=== PATIENT | male | born 1975 | race Caucasian/White ===

== ENCOUNTER 2021-02-17 12:13 | Emergency (ER) | payer BC, SELFPAY ==
--- NOTE | ~2021-02-17 | XR_ITS ---
EXAMINATION: LUMBAR SPINE AND CHEST X-RAY. CLINICAL INFORMATION: Fall. Low back pain. COMPARISON: None TECHNIQUE: Chest 2 views. Lumbar spine 3 views. FINDINGS: Lumbar spine: There is normal lumbar lordosis. The vertebral heights, alignment and disc heights are normal. No visible acute fracture, dislocation or lytic process seen. The SI joints are symmetrical. The paravertebral soft tissues are normal. CHEST: The lungs are well-expanded and clear. The heart size and pulmonary vascularity is normal. No gross bony abnormality seen. XR/XR chest 2V IMPRESSION: Unremarkable chest exam. Unremarkable lumbar spine exam.
--- NOTE | ~2021-02-17 | XR_ITS ---
EXAMINATION: LUMBAR SPINE AND CHEST X-RAY. CLINICAL INFORMATION: Fall. Low back pain. COMPARISON: None TECHNIQUE: Chest 2 views. Lumbar spine 3 views. FINDINGS: Lumbar spine: There is normal lumbar lordosis. The vertebral heights, alignment and disc heights are normal. No visible acute fracture, dislocation or lytic process seen. The SI joints are symmetrical. The paravertebral soft tissues are normal. CHEST: The lungs are well-expanded and clear. The heart size and pulmonary vascularity is normal. No gross bony abnormality seen. XR/XR lumbar spine 2-3V IMPRESSION: Unremarkable chest exam. Unremarkable lumbar spine exam.
[2021-02-17 12:47] VITALS: BP 149/100; PULSE 102; RESP 22; TEMP 36.9; O2SAT 98; BMI 27.5
--- NOTE | 2021-02-17 13:33 | ED.GENADULT ---
HPI - General Adult General Chief complaint: Back Pain/Injury Stated complaint: fall back pain Time Seen by Provider: 02/17/21 13:32 Source: patient Limitations: language barrier History of Present Illness HPI narrative: Patient presents to the ER complaining of right-sided lower back pain. And also chest wall pain. Patient states last night while playing basketball on its side he slipped on the pavement falling onto his back. Patient states the pain is worsened after sleeping at a friend's house last night. Pain increases with any range of motion or palpation of the front of the chest or mid back to lower back. Pain is 9/10. Patient denies nausea vomiting fever chills. Symptoms are moderate Related Data Previous Rx's Medication Instructions Recorded methocarbamol 750 mg PO TID PRN #20 tab 02/17/21 naproxen 500 mg PO BID PRN #20 tab 02/17/21 Allergies Allergy/AdvReac Type Severity Reaction Status Date / Time No Known Allergies Allergy Unverified 05/06/20 15:03 [No Known Allergies*] Review of Systems Review of Systems: Constitutional : No Weight loss, No Fever, No Chills, No Night Sweats, No Fatigue, No Malaise ENT/Mouth : No Hearing loss, No Ear Pain, No Nasal Congestion, No Sinus Pain, No Hoarseness, No sore throat, No Rhinorrhea, No Swallowing Difficulty Eyes: No Eye Pain, No Swelling, No Redness, No Foreign Body, No Discharge, No Vision Changes Cardiovascular : No Chest Pain, No SOB, No Dyspnea on Exertion, No Orthopnea, No Edema, No Palpitations Respiratory : No Cough, No Sputum, No Wheezing, No Smoke Exposure, No Dyspnea Gastrointestinal : No Nausea, No Vomiting, No Diarrhea, No Constipation, No abdominal Pain, No Hematochezia, No Melena Genitourinary : no irregular bleeding, No Dysuria, No Urinary Frequency, No Hematuria, No Urinary Incontinence, No Urgency, No Flank Pain, No Urinary Flow Changes, No Hesitancy Musculoskeletal : No joint pain, No Myalgias, No Joint SwellingSkin : No Skin Lesions, No rash Neuro : No Weakness, No Numbness, No Paresthesias, No Loss of Consciousness, No Dizziness, No Headache Psych : No Anxiety/Panic, No Depression, No SI/HI/AH/VH, No Social Issues, Heme/Lymph: No Bruising, No Bleeding,No Lymphadenopathy Endocrine : No Polyuria, No Polydipsia, No Temperature Intolerance Constitutional: Constitutional: Denies chills, Denies fever(s), Denies headache(s) and Denies weakness ENT: Denies headache(s) and Denies neck pain Cardiovascular: Cardiovascular: Reports chest pain ( chest wall pain), Denies lightheadedness and Denies dyspnea Respiratory: Respiratory: Denies cough and Denies dyspnea Gastrointestinal: Gastrointestinal: Denies nausea and Denies vomiting Musculoskeletal: Musculoskeletal: Denies muscle weakness, Denies neck pain and Denies numbness Comments: diffuse lower back pain Neurologic: Denies headache(s), Denies numbness and Denies weakness [facility] Past Medical History Attestation statement: The following information was validated with the patient. Medical History Cardiac anomaly No known health problems Social History Social History Advance Directives: Yes Advance Directives Information Provided: No Advance Directives on File: No Physical Exam Vital Signs: Vital Signs: Last Vital Signs Temp 98.5 F 02/17/21 12:47 Pulse 102 H 02/17/21 12:47 Resp 22 H 02/17/21 12:47 BP 149/100 H 02/17/21 12:47 Pulse Ox 98 02/17/21 12:47 Body Mass Index 27.5 vital signs have been reviewed as normal and appeared to be correct. Blood pressure normal. Heart rate normal. Respiration rate normal. Temperature normal. Oxygen saturation normal. Appearance: Alert. Oriented X3. patient very anxious complaining of pain Head: Normal external exam. Normocephalic. Atraumatic. Eyes: PERRLA. EOMI. Conjunctiva and sclera normal. Eyelids normal. ENT: Pharynx normal. Uvula midline. Moist mucous membranes. Neck: Soft full range of motion, no JVD CVS: Heart regular rate and rhythm no murmurs and rubs positive chest wall does tenderness diffuse 3rd 4th intercostals no crepitus Respiratory: Breath sounds are clear to auscultation bilaterally. No accessory muscle use noted. Abdomen: Soft nontender no rebound or guarding positive bowel sounds Back: paraspinal muscle tenderness right greater than left slight midline tenderness slight abrasion noted right side of the back Skin: Skin warm and dry. Extremities: No lower extremity edema. patient is moving upper and lower extremities Neuro: Oriented X 3. No motor deficit. No sensory deficit. Reflexes normal. Course Course Course Narrative: lumbar contusion Lumbar strain Lumbar fracture Chest wall contusion 60 mg Toradol IM LS spine and chest x-ray pending masspat reviewed no prescriptions found system consistent with musculoskeletal pain and positive relief with Toradol with plan to discharge patient home x-rays of foot reviewed with patient Medical Decision Making Imaging Data lumbar: Radiologist's impression: [address] [id number] ReportSigned Patient: Sylvain Vera MMR#: [id number]: [id number]:[id number]/Sex: 45 / MADM Date: 02/17/21Loc: HO.EDAttending Dr: Ordering Physician: Fredo Arellano Date of Service: 02/17/21 Procedure(s): XR chest 2V Accession Number(s): [id number] cc: Fredo Arellano ~ EXAMINATION: LUMBAR SPINE AND CHEST X-RAY. CLINICAL INFORMATION: Fall. Low back pain. COMPARISON: None TECHNIQUE: Chest 2 views. Lumbar spine 3 views. FINDINGS: Lumbar spine: There is normal lumbar lordosis. The vertebral heights, alignment and disc heights are normal. No visible acute fracture, dislocation or lytic process seen. The SI joints are symmetrical. The paravertebral soft tissues are normal. CHEST: The lungs are well-expanded and clear. The heart size and pulmonary vascularity is normal. No gross bony abnormality seen. XR/XR chest 2V IMPRESSION: Unremarkable chest exam. Unremarkable lumbar spine exam. Dictated By:BANDAR UMANZOR MDSigned By:<Electronically signed by BANDAR UMANZOR MD in OV>02/17/21 1419 DD/ 1332TD/TT: Warehouse Operations Associate: [facility] [place] Discharge Plan Discharge Clinical Impression: Lumbar contusion, Chest wall pain Patient Disposition: Home, Self-Care Instructions: Acute Low Back Pain (ED) Additional Instructions: x-ray of the chest and lumbar spine are normal with no sign of fracture or abnormalities use ice on the areas that hurt medications as directed Prescriptions: New naproxen 500 mg tablet 500 mg PO BID PRN (Reason: pain) Qty: 20 RF: 0 methocarbamol 750 mg tablet 750 mg PO TID PRN (Reason: muscle spasm) Qty: 20 RF: 0
[2021-02-17] MEDS: Ketorolac Tromethamine 60 MG/2 ML VIAL IM (13:38)
== END 2021-02-17 14:39 | disposition home or self-care (01) ==
PROVIDERS: Emergency Provider Emergency Medicine Emergency Medical Services
DX: S30.0XXA Contusion of lower back and pelvis, initial encounter (principal); R07.89 Other chest pain; W01.0XXA Fall on same level from slipping, tripping and stumbling without subsequent striking against object, initial encounter; Y93.67 Activity, basketball; Y92.39 Other specified sports and athletic area as the place of occurrence of the external cause; Y99.9 Unspecified external cause status
CPT/HCPCS: 71046; 72100; 96372; 99283; 99284; J1885